=== PATIENT | male | born 1950 | race Caucasian/White ===

== ENCOUNTER → 2016-12-19 | Outpatient (CLI) | payer OTHER, MEDICARE ==
[2014-09-02 02:48] VITALS: BP 132/78
--- NOTE | 2016-12-19 16:02 | RAD ---
The [facility] Indication: The left-sided flank pain Comparison: none available Findings: There is a normal bowel gas pattern. No free air or pneumatosis. There is an approximate 4 mm calcu carolyn projecting over the midpole left kidney. The bony structures are grossly intact. Previous lumbos acral posterior fixation is noted. IMPRESSION: A 4 mm calculus projecting over the midpole left kidney consistent with nephrolithiasis. Bowel gas pattern is normal. Reported By:
== END ==
LOC: RAD 15:20
PROVIDERS: ATTEND Obstetrics & Gynecology Obstetrics
DX: N23 Unspecified renal colic (principal); N20.0 Calculus of kidney
CPT/HCPCS: 74000